=== PATIENT | male | born 1970 ===

== ENCOUNTER 2017-11-23 17:28 | Emergency (ER) | payer BC ==
[2017-11-23 17:48] VITALS: BP 119/78
--- NOTE | 2017-11-23 17:58 | UC ---
Skin Complaint HPI - HPI Summary HPI Summary: 47 yo male presents with foot injury sustained 2 days ago. He tells me that he was on vacation in [facility] and 2 days ago was on the beach and stepped on a sea urchin. Some of the spines were stuck in his LEFT great toe - he was able to remove some of them but others were too deep. He continued walking and usual activities for 2 days until he returned home. He is here hoping to have them removed. - History of Current Complaint Chief Complaint: UCLowerExtremity Time Seen by Provider: 11/23/17 17:58 Stated Complaint: FOOT INJURY Hx Obtained From: Patient Onset/Duration: Sudden Onset Skin Exposure Onset/Duration: Days Ago Onset Severity: Moderate Current Severity: Moderate Pain Intensity: 5 Pain Scale Used: 0-10 Numeric - Allergy/Home Medications Allergies/Adverse Reactions: Allergies Allergy/AdvReac Type Severity Reaction Status Date / Time No Known Allergies Allergy Verified 11/23/17 17:49 Home Medications: Home Medications Beclomethasone Dipropionate [Qnasl] 80 mcg NA DAILY 11/23/17 [History Confirmed 11/23/17] Pantoprazole TAB (NF) [Protonix TAB (NF)] 20 mg PO DAILY 11/23/17 [History Confirmed 11/23/17] Review of Systems Constitutional: Negative Skin: Other - Sea urchin spine in toe Respiratory: Negative Cardiovascular: Negative Neurovascular: Negative Neurological: Negative Psychological: Negative All Other Systems Reviewed And Are Negative: Yes PMH/Surg Hx/FS Hx/Imm Hx Previously Healthy: Yes GI/ History: Gastroesophageal Reflux - Surgical History Surgical History: None - Family History Known Family History: Positive: None - Social History Occupation: Employed Full-time Lives: With Family Alcohol Use: Weekly Substance Use Type: None Smoking Status (MU): Never Smoked Tobacco Physical Exam - Summary Physical Exam Summary: GENERAL: NAD. WDWN. No pain distress. SKIN: LEFT great toe: plantar aspect with two visible black/blue FBs within the superficial tissue. Mild TTP. No erythema or warmth. No streaking, bleeding, or drainage. NECK: Supple. Nontender. No lymphadenopathy. CHEST: No accessory muscle use. Breathing comfortably and in no distress. CV: Pulses intact NEURO: Alert. CN II-XII grossly intact. PSYCH: Age appropriate behavior. Triage Information Reviewed: Yes Vital Signs: Initial Vital Signs Temp 98.3 F 07/20/18 17:44 Pulse 63 11/23/17 17:44 Resp 16 11/23/17 17:44 BP 119/78 11/23/17 17:44 Pulse Ox 99 11/23/17 17:44 Course/Dx - Course Course Of Treatment: A time out was performed, witnessed, and signed. The area was cleansed with an alcohol pad. 1mL of 2% lidocaine without epi was administered and good anesthetization was achieved. The two spines were excised with a #15 blade and splinter forceps. Pt tolerated well. The wound was bandaged with a band-aid. tdap was updated today. Advised to keep the area covered until well healed and f/u if he develops any sign of infection. - Diagnoses Provider Diagnoses: Sea urchin spine in left great toe Discharge - Sign-Out/Discharge Documenting (check all that apply): Patient Departure - Discharge Plan Condition: Stable Disposition: HOME Patient Education Materials: Soft Tissue Foreign Body (ED) Referrals: Ronaldo Mcmahan NP [Primary Care Provider] - Additional Instructions: If you develop a fever, shortness of breath, chest pain, new or worsening symptoms - please call your PCP or go to the ED. 1) If you develop redness, pain, or swelling to the area - please follow up with your PCP or return to urgent care - Billing Disposition and Condition Condition: STABLE Disposition: Home
[2017-11-23] MEDS ORDERED: Lidocaine 2% PF * 5 ML VIAL INJ ONE (18:01)
[2017-11-23] MEDS ORDERED: Tetan/Diph/Pertus SYR(Tdap)* 0.5 ML SYR(BOOSTRIX) use SYR IM ONE (18:01)
== END 2017-11-23 18:45 | disposition home or self-care (01) ==
LOC: UCEAST 17:28
DX: S90.452A Superficial foreign body, left great toe, initial encounter (principal); K21.9 Gastro-esophageal reflux disease without esophagitis; Z79.899 Other long term (current) drug therapy; W56.89XA Other contact with other nonvenomous marine animals, initial encounter; Y92.832 Beach as the place of occurrence of the external cause
CPT/HCPCS: 90472; 90715; 99201; G0463

== ENCOUNTER 2018-05-01 16:21 | Emergency (ER) | payer BC, OTHER ==
--- OUTSIDE RECORDS SUMMARY | 2018-05-01 16:47 | XMS REPORT | Continuity of Care Document ---
:1970 External Reference #:[id number] Author Name JOY Gutierrez Address 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 Active Onset: 01/24/2017 Anaphylactic reaction due to fruits and Rachel Tran M.D. Active vegetables, initial encounter Onset: 01/24/2017 Gastroesophageal reflux disease Rachel Tran M.D. Active Onset: 01/24/2017 Allergic rhinitis due to animals aRchel Tran M.D. Active Onset: 01/24/2017 Allergic rhinitis due to pollen Rachel Tran M.D. Active Onset: 01/24/2017 Mild intermittent asthma Rachel Tran M.D. Active Family History Date Family Member(s) Problem(s) Comments General Rheumatoid Arthritis General Psoriasis Onset: (2016) Father Seasonal Allergies Mother Rheumatoid Arthritis Mother Eczema Mother due to autoimmune () - from complications of rheumatoid arthritis, Sjogren's Syndrome, and lupus. Mother autoimmune Serious autoimmune disorders; from complications of rheumatoid arthritis, Sjogren's Syndrome, and lupus. Onset: (2017) First Sister Eczema First Sister psoriasis First Sister IBS Second Sister Eczema Second Sister Psoriasis Second Sister IBS very serious ulcerative colitis and IBS - had total colectomy with J-pouch construction. 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 Home Environment Does not use a dehumidifier Home Environment Pillows are encased in an allergy proof case Home Environment Mattress is 4 years old Home Environment Mattress is encased in an allergy proof case Smoke-Free Work is smoke-free Smoke-Free Home is smoke-free Pets None can tell with cats No pets ever aside from a hamster 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 Employment Hobbies Running Hobbies Exercise Tobacco Use Start: Unknown End: Quit Unknown ETOH Use Drinks 3 Alcoholic Beverages Per Week ETOH Use Occasionally consumes alcohol ETOH Use Occasionally consumes beer ETOH Use Occasionally consumes wine ETOH Use Occasionally consumes liquor ETOH Use Currently consumes alcohol Tobacco Use Start: Unknown End: Patient is a former Unknown smoker Recreational Drug Use Never Used Drugs Allergies, Adverse Reactions, Alerts Description No Known Drug Allergies Medications Medication Date Status Form Strength Qnty SIG Indications Ordering Provider Qnasl 05/16/ Active Aerosol 80mcg/Act 3units spray 1 to 2017 2 sprays Opal, into each DYE TUB TENDER-C nostril one time daily Epipen 2-José 01/24/ Active Solution 0.3mg/0.3M 2units use as J45.20 2016 Auto-Injec yasmin [place] for a DYE TUB TENDER-C severe allergic reaction mylan generic ok Pantoprazole / Active Tablets DR 40mg Unknown Sodium 0000 Ranitidine HCL / Active Tablets 300mg Unknown 0000 Levalbuterol / Active Aerosol 45mcg/Act 2 puffs Unknown Tartrate 0000 inhalation q6 hours as needed Immunizations CPT Code Status Date Vaccine Lot # [id number] Given Unknown Influenza Vaccine Vital Signs Date Vital Result Comment 04/22/2018 9:24am Height 71 inches 5'11" Weight 206.00 lb Weight 93.442 kg Respiratory Rate 16 /min Heart Rate 62 /min O2 % BldC Oximetry 97 % BP Systolic 108 mmHg BP Diastolic 69 mmHg Asthma Control Test 25 Fractional Exhaled Nitric Oxide 29 BMI (Body Mass Index) 28.7 kg/m2 05/16/2017 3:58pm Height 71 inches 5'11" Weight 198.38 lb Weight 89.983 kg Respiratory Rate 18 /min Heart Rate 71 /min O2 % BldC Oximetry 98 % BP Systolic 105 mmHg BP Diastolic 69 mmHg BMI (Body Mass Index) 27.7 kg/m2 01/24/2017 9:07am Height 71 inches 5'11" Weight 202.00 lb Weight 91.627 kg Respiratory Rate 16 /min Heart Rate 78 /min O2 % BldC Oximetry 98 % BP Systolic 111 mmHg BP Diastolic 68 mmHg BMI (Body Mass Index) 28.2 kg/m2 Results Description No Information Available Procedures Date Code Description Status 04/22/2018 24512 Nitric Oxide Gas Determination Completed 05/16/2017 59368 Pre PFT Completed 01/24/2017 27423 Pulmonary Function Test Completed Encounters Type Date Location Provider Dx Diagnosis Office Visit 04/22/2018 Criselda Joseph J45.20 Mild intermittent 9:20a DYE TUB TENDER-C asthma, uncomplicated J30.1 Allergic rhinitis due to pollen J30.81 Allergic rhinitis due to animal (cat) (dog) hair and dander K21.9 Gastro-esophageal reflux disease without esophagitis Office Visit 05/16/2017 4:00p Deyanira Paredes45.20 Mild intermittent M.D. asthma, uncomplicated J30.1 Allergic rhinitis due to pollen J30.81 Allergic rhinitis due to animal (cat) (dog) hair and dander K21.9 Gastro-esophageal reflux disease without esophagitis Office Visit 01/24/2017 9:00a Deyanira Paredes45.20 Mild intermittent M.D. asthma, uncomplicated J30.1 Allergic rhinitis due to pollen J30.81 Allergic rhinitis due to animal (cat) (dog) hair and dander K21.9 Gastro-esophageal reflux disease without esophagitis T78.04xA Anaphylactic reaction due to fruits and vegetables, init L56.3 Solar urticaria Plan of Treatment Future Appointment(s):04/21/2019 8:40 am - CHRISTIANO Gutierrez-[facility] at [id number] - CHRISTIANO Gutierrez-CJ45.20 Mild intermittent asthma, [id number] Allergic rhinitis due to tnxvueT45.81 Allergic rhinitis due to animal (cat) (dog) hair and raqtkuV90.9 Gastro-esophageal reflux disease without esophagitisRecommendations:Continue all medications as prescribed.Refrain from wearing perfumes/scented colognes while visitingour office. Continue the Qnasl 2 sprays daily Continue strict avoidance of Kiwi . If accidental ingestion occurs, refer to Emergency Action Plan for treatment. Reviewed EAP, patient is comfortable and understands current plan. Discussed signs and symptoms of anaphylaxis. Reviewed EAP, patient is comfortable and understands current plan.
[2018-05-01 16:55] VITALS: BP 128/77
--- NOTE | 2018-05-01 16:59 | UC ---
Throat Pain/Nasal Anibal HPI - HPI Summary HPI Summary: 47 yo male presents with sinus pain/pressure/congestion and post nasal drip for the last 5 days. He uses a daily nasal spray and has had no relief. He says that he has had a lot of sinus issues in the past - usually around this time of year. Denies fever, chills, sore throat, cough. - History of Current Complaint Chief Complaint: UCRespiratory Stated Complaint: SINUS COMPLAINT Time Seen by Provider: 05/01/18 16:58 Hx Obtained From: Patient Onset/Duration: Gradual Onset Pain Intensity: 0 Pain Scale Used: 0-10 Numeric - Allergies/Home Medications Allergies/Adverse Reactions: Allergies Allergy/AdvReac Type Severity Reaction Status Date / Time yaakov Allergy Swelling Verified 05/01/18 16:55 Of Face,Lips,& Throat PMH/Surg Hx/FS Hx/Imm Hx GI/ History: Gastroesophageal Reflux - Surgical History Surgical History: None - Family History Known Family History: Positive: None - Social History Occupation: Employed Full-time Lives: With Family Alcohol Use: Occasionally Substance Use Type: None Smoking Status (MU): Never Smoked Tobacco Review of Systems All Other Systems Reviewed And Are Negative: Yes Constitutional: Positive: Negative Skin: Positive: Negative Eyes: Positive: Negative ENT: Positive: Nasal Discharge, Sinus Congestion, Sinus Pain/Tenderness Respiratory: Positive: Negative Cardiovascular: Positive: Negative Gastrointestinal: Positive: Negative Neurological: Positive: Negative Psychological: Positive: Negative Physical Exam - Summary Physical Exam Summary: GENERAL: NAD. WDWN. No pain distress. SKIN: No rashes, sores, lesions, or open wounds. HEENT: Head: AT/NC Eyes: EOM intact. Conjunctiva clear without inflammation or discharge. Ears: Hearing grossly normal. TMs intact, no bulging, erythema, or edema. Nose: Nasal mucosa mildly swollen and erythematous without discharge. TTP maxillary and frontal sinus. Positive post nasal drip Throat: Posterior oropharynx without exudates, erythema, or tonsillar enlargement. Uvula midline. NECK: Supple. Nontender. No lymphadenopathy. CHEST: CTAB. No r/r/w. No accessory muscle use. Breathing comfortably and in no distress. CV: RRR. Without m/r/g. Pulses intact. NEURO: Alert. PSYCH: Age appropriate behavior. Triage Information Reviewed: Yes Vital Signs: Initial Vital Signs Temp 97.8 F 05/01/18 16:53 Pulse 78 05/01/18 16:53 Resp 12 05/01/18 16:53 BP 128/77 05/01/18 16:53 Pulse Ox 99 05/01/18 16:53 Vital Signs Reviewed: Yes Throat Pain/Nasal Course/Dx - Course Course Of Treatment: Sinusitis. He says that amoxicillin does not work for him and prefers zpak. - Differential Dx/Diagnosis Provider Diagnosis: Sinusitis Discharge - Sign-Out/Discharge Documenting (check all that apply): Patient Departure All imaging exams completed and their final reports reviewed: No Studies - Discharge Plan Condition: Stable Disposition: HOME Prescriptions: Azithromycin TAB* [Zithromax TAB (Z-JOLLY) 250 mg #6 tabs] 2 tab PO .TODAY, THEN 1 DAILY #1 jolly Patient Education Materials: Sinusitis (ED) Referrals: Ronaldo Mcmahan, MITER SAWYER [Primary Care Provider] - Additional Instructions: If you develop a fever, shortness of breath, chest pain, new or worsening symptoms - please call your PCP or go to the ED. - Billing Disposition and Condition Condition: STABLE Disposition: Home
== END 2018-05-01 17:10 | disposition home or self-care (01) ==
LOC: UCEAST 16:21
DX: J32.9 Chronic sinusitis, unspecified (principal); Z91.018 Allergy to other foods
CPT/HCPCS: 99212; G0463

== ENCOUNTER 2018-07-16 11:23 | Emergency (ER) | payer BC ==
--- NOTE | 2018-07-16 12:56 | UC ---
Throat Pain/Nasal Anibal HPI - HPI Summary HPI Summary: 47 yo male presents with intermittently productive cough for the last 5 days. He has been taking mucinex OTC with little relief. Says that he gets "bronchitis " around this time every year and is treated with anbx and this feels the same. Denies fever, chills, sore throat, SOB, chest pain. - History of Current Complaint Chief Complaint: UCRespiratory Stated Complaint: COUGH CONGESTION Time Seen by Provider: 07/16/18 12:55 Hx Obtained From: Patient Onset/Duration: Gradual Onset Severity: Mild Pain Intensity: 3 Pain Scale Used: 0-10 Numeric - Allergies/Home Medications Allergies/Adverse Reactions: Allergies Allergy/AdvReac Type Severity Reaction Status Date / Time kiwi Allergy Swelling Verified 07/16/18 12:57 Of Face,Lips,& Throat Home Medications: Home Medications Dm/PE/Acetaminophen/Doxylamine [Vicks Dayquil/Nyquil Cold] 1 mis PO 07/16/18 [ History] PMH/Surg Hx/FS Hx/Imm Hx GI/ History: Gastroesophageal Reflux - Surgical History Surgical History: None - Family History Known Family History: Positive: None - Social History Occupation: Employed Full-time Lives: With Family Alcohol Use: Occasionally Substance Use Type: None Smoking Status (MU): Never Smoked Tobacco Review of Systems All Other Systems Reviewed And Are Negative: Yes Constitutional: Positive: Negative Skin: Positive: Negative Eyes: Positive: Negative ENT: Positive: Negative Respiratory: Positive: Cough Cardiovascular: Positive: Negative Gastrointestinal: Positive: Negative Neurovascular: Positive: Negative Neurological: Positive: Negative Psychological: Positive: Negative Physical Exam - Summary Physical Exam Summary: GENERAL: NAD. WDWN. No pain distress. SKIN: No rashes, sores, lesions, or open wounds. HEENT: Head: AT/NC Eyes: EOM intact. Conjunctiva clear without inflammation or discharge. Ears: Hearing grossly normal. TMs intact, no bulging, erythema, or edema. Nose: Nasal mucosa pink and moist. NTTP maxillary and frontal sinus. Throat: Posterior oropharynx without exudates, erythema, or tonsillar enlargement. Uvula midline. NECK: Supple. Nontender. No lymphadenopathy. CHEST: CTAB. No r/r/w. No accessory muscle use. Breathing comfortably and in no distress. CV: RRR. Without m/r/g. Pulses intact. Cap refill <2seconds NEURO: Alert. PSYCH: Age appropriate behavior. Triage Information Reviewed: Yes Vital Signs: Vital Signs: Temp Pulse Resp BP Pulse Ox 98.5 F 68 18 128/75 97 07/16/18 12:54 07/16/18 12:54 07/16/18 12:54 07/16/18 12:54 07/16/18 12:54 Vital Signs Reviewed: Yes Throat Pain/Nasal Course/Dx - Course Course Of Treatment: Bronchitis - Differential Dx/Diagnosis Provider Diagnosis: Bronchitis Discharge - Sign-Out/Discharge Documenting (check all that apply): Patient Departure All imaging exams completed and their final reports reviewed: No Studies - Discharge Plan Condition: Stable Disposition: HOME Prescriptions: Azithromycin TAB* [Zithromax TAB (Z-JOLLY) 250 mg #6 tabs] 2 tab PO .TODAY, THEN 1 DAILY #1 jolly Benzonatate CAP* [Tessalon 100 MG CAP*] 100 mg PO TID PRN #21 cap PRN Reason: Cough Codeine Phosphate/Guaifenesin [Guaifen-Codeine 100-10 mg/5 ml] 5 ml PO BEDTIME PRN #35 ml MDD 5mL PRN Reason: Cough Patient Education Materials: Acute Bronchitis (ED) Referrals: Ronaldo Mcmahan RANGE RIDER [Primary Care Provider] - Additional Instructions: If you develop a fever, shortness of breath, chest pain, new or worsening symptoms - please call your PCP or go to the ED. - Billing Disposition and Condition Condition: STABLE Disposition: Home
[2018-07-16 12:57] VITALS: BP 128/75
== END 2018-07-16 13:10 | disposition home or self-care (01) ==
LOC: UCEAST 11:23
DX: J40 Bronchitis, not specified as acute or chronic (principal); Z91.018 Allergy to other foods
CPT/HCPCS: 99212; G0463